=== PATIENT | female | born 1955 ===

== ENCOUNTER 2017-10-19 08:56 | Inpatient (IN) | payer OTHER ==
[2017-10-19 09:22] VITALS: BMI 36.7
[2017-10-19] MEDS ORDERED: Morphine 4 mg/ml ISec IVP STA (09:41)
--- NOTE | 2017-10-19 09:47 | ED PDOC ---
Arrival/HPI - General Chief Complaint: Abdominal Pain Time Seen by Provider: 10/19/17 09:00 Historian: Patient - History of Present Illness Narrative History of Present Illness (Text): 10/19/17 09:41 A 61 year old female, whose past medical history includes COPD, obesity, and borderline diabetes with recent hypoglycemic fingersticks, hypothyroidism, presents to the emergency department with 4 day duration epigastric upper band like pain that wraps around the whole thorax through the interscapular region, postprandially exacerbated with associated decreased shortness of breath, decrepitation of exercise tolerance, nausea and left upper extremity numbness and tingling. The patient denies fevers, chills, headache, dizziness, productive cough, abdominal pain, vomiting, diarrhea, urinary/bowel changes, or any other complaint. PMD: Dr. Angelo Portillo Time/Duration: Other (4 Days) Symptom Onset: Sudden Symptom Course: Unchanged Activities at Onset: Rest, Light Context: Home Past Medical History - Provider Review Nursing Documentation Reviewed: Yes - Tetanus Immunization Tetanus Immunization: Unknown - Cardiac Hx Pacemaker: No - Pulmonary Hx Chronic Obstructive Pulmonary Disease (COPD): Yes - Neurological Hx Neurological Disorder: No Hx Paralysis: No - HEENT Hx HEENT Disorder: Yes (glasses) - Renal Hx Renal Disorder: No - Endocrine/Metabolic Hx Endocrine Disorders: Yes Hx Diabetes Mellitus Type 2: Yes Hx Hypothyroidism: Yes - Hematological/Oncological Hx Blood Disorders: No Hx Blood Transfusions: No Hx Blood Transfusion Reaction: No - Integumentary Hx Dermatological Disorder: No - Musculoskeletal/Rheumatological Hx Musculoskeletal Disorders: No Hx Falls: No - Gastrointestinal Hx Gastrointestinal Disorders: Yes Hx Gastritis: Yes - Genitourinary/Gynecological Hx Genitourinary Disorders: No - Psychiatric Hx Psychophysiologic Disorder: No Hx Emotional Abuse: No Hx Physical Abuse: No Hx Substance Use: No - Surgical History Hx Cholecystectomy: Yes Other/Comment: C- section - Anesthesia Hx Anesthesia Reactions: No Hx Malignant Hyperthermia: No - Suicidal Assessment Feels Threatened In Home Enviroment: No Family/Social History - Physician Review Nursing Documentation Reviewed: Yes Family/Social History: No Known Family HX Smoking Status: Former Smoker Hx Alcohol Use: No Hx Substance Use: No Allergies/Home Meds Allergies/Adverse Reactions: Allergies No Known Allergies Allergy (Verified 10/19/17 09:12) Home Medications: Home Meds Medication Instructions Recorded Confirmed Levothyroxine Sodium [Unithroid] 25 mcg PO DAILY 12/22/15 10/19/17 Aspirin [Adult Low Dose Aspirin EC] 81 mg PO DAILY 10/19/17 10/19/17 buPROPion SR [Wellbutrin] 100 mg PO DAILY 10/19/17 10/19/17 Review of Systems - Physician Review All systems were reviewed & negative as marked: Yes - Review of Systems Constitutional: absent: Fevers, Night Sweats Respiratory: SOB, Cough Cardiovascular: Chest Pain, RANDHAWA Gastrointestinal: Nausea. absent: Abdominal Pain, Diarrhea, Vomiting Genitourinary Female: absent: Urine Output Changes Neurological: absent: Headache, Dizziness Physical Exam Vital Signs Reviewed: Yes Vital Signs Temp Pulse Resp BP Pulse Ox 10/19/17 12:34 65 18 135/55 L 99 10/19/17 09:09 98.0 F 75 18 157/94 H 96 Temperature: Afebrile Blood Pressure: Hypertensive Pulse: Regular Respiratory Rate: Normal Appearance: Positive for: Well-Appearing, Non-Toxic, Uncomfortable Pain Distress: None Mental Status: Positive for: Alert and Oriented X 3 - Systems Exam Head: Present: Atraumatic, Normocephalic Pupils: Present: PERRL Extroacular Muscles: Present: EOMI Conjunctiva: Present: Normal Mouth: Present: Moist Mucous Membranes Neck: Present: Normal Range of Motion Respiratory/Chest: Present: Decreased Breath Sounds (mild decreased I/E ratio) Cardiovascular: Present: Regular Rate and Rhythm, Normal S1, S2. No: Murmurs Abdomen: Present: Other (mild epigastric distractible discomfort. Obese abdomen. Soft.) Back: Present: Normal Inspection Upper Extremity: Present: Normal Inspection. No: Cyanosis, Edema Lower Extremity: Present: Edema (trace edema), Tenderness (Mildly tender to touch) Neurological: Present: GCS=15, CN II-XII Intact, Speech Normal Skin: Present: Warm, Dry, Normal Color. No: Rashes Psychiatric: Present: Alert, Oriented x 3, Normal Insight, Normal Concentration Medical Decision Making ED Course and Treatment: 10/19/17 09:52 Impression: A 61 year old female presents to the emergency department for cough, shortness of breath and chest pain. Plan: -- EKG -- Chest X-ray -- Labs -- Urinalysis -- Ecotrin, Pepcid, Morphine, and Protonix -- Reassess and disposition Prior Visits: Notes and results from previous visits were reviewed. Patient was last seen in the emergency department on 12/27/2015. The patient was seen in the emergency department with a complaint of productive cough with spututm. The patient was hospitalized. Progress Notes: CHEST X-RAY Dictator : Sylvain Marion MD Report Date : 10/19/2017 10:56:11 IMPRESSION: No active disease. 10/19/17 16:42 pt continues to complain bandlike upper abdomoinal pain raditing to the lue tingling /umbness and decrementaiton of ET. - Lab Interpretations Lab Results: 10/19/17 10:00 10/19/17 10:00 Lab Results 10/19/17 13:39: Troponin I < 0.01 10/19/17 10:00: Sodium 141, Potassium 4.1, Chloride 106, Carbon Dioxide 27, Anion Gap 12, BUN 12, Creatinine 0.8, Est GFR ( Amer) > 60, Est GFR (Non- Af Amer) > 60, Random Glucose 184 H, Calcium 9.2, Total Bilirubin 0.7, AST 44 H , ALT 60 H, Alkaline Phosphatase 103, Troponin I < 0.01, Total Protein 6.8, Albumin 3.8, Globulin 3.0, Albumin/Globulin Ratio 1.3, Lipase 75 10/19/17 10:00: Urine Color Yellow, Urine Appearance Clear, Urine pH 6.0, Ur Specific [place] 1.015, Urine Protein Negative, Urine Glucose (UA) 250 H, Urine Ketones Negative, Urine Blood Negative, Urine Nitrate Negative, Urine Bilirubin Negative, Urine Urobilinogen 0.2, Ur Leukocyte Esterase Negative 10/19/17 10:00: PT 11.2, INR 1.02, APTT 27.2 10/19/17 10:00: WBC 7.2, RBC 5.15, Hgb 14.7, Hct 43.4, MCV 84.3, MCH 28.5, MCHC 33.9, RDW 13.5, Plt Count 182, MPV 10.5, Gran % 67.1, Lymph % (Auto) 23.8, [place] % (Auto) 5.4, Eos % (Auto) 2.9, Baso % (Auto) 0.8, Gran # 4.85, Lymph # 1.7, [place] # 0.4, Eos # 0.2, Baso # 0.06 I have reviewed the lab results: Yes - RAD Interpretation Radiology Orders: 10/19/17 09:41 CHEST PORTABLE [RAD] Stat 10/19/17 13:08 ABDOMEN COMPLETE [US] Stat - EKG Interpretation Interpreted by ED Physician: Yes Type: 12 lead EKG - Medication Orders Current Medication Orders: Discontinued Medications Al Hydrox/Mg Hydrox/Simethicone (Maalox Plus 30 Ml) 30 ml PO STAT STA Stop: 10/19/17 11:13 Last Admin: 10/19/17 11:34 Dose: 30 ml Aspirin (Ecotrin) 162 mg PO STAT STA Stop: 10/19/17 09:44 Last Admin: 10/19/17 10:15 Dose: 162 mg Famotidine (Pepcid) 20 mg IVP STAT STA Stop: 10/19/17 09:42 Last Admin: 10/19/17 10:10 Dose: 20 mg IVP Administration Document 10/19/17 10:10 RD (Rec: 10/19/17 10:17 RD [id number]) Charges for Administration # of IVP Administrations 1 Morphine Sulfate (Morphine) 2 mg IVP STAT STA Stop: 10/19/17 09:42 Last Admin: 10/19/17 10:17 Dose: 2 mg MAR Pain Assessment Document 10/19/17 10:17 RD (Rec: 10/19/17 10:17 RD [id number]) Pain Reassessment Is this a pain reassessment? No Sleep Is patient sleeping during reassessment? No Presence of Pain Presence of Pain Yes IVP Administration Document 10/19/17 10:17 RD (Rec: 10/19/17 10:17 RD [id number]) Charges for Administration # of IVP Administrations 1 Pantoprazole Sodium (Protonix Inj) 40 mg IVP STAT STA Stop: 10/19/17 09:42 Last Admin: 10/19/17 10:13 Dose: 40 mg IVP Administration Document 10/19/17 10:13 RD (Rec: 10/19/17 10:18 RD [id number]) Charges for Administration # of IVP Administrations 1 - Scribe Statement The provider has reviewed the documentation as recorded by the Kashif Dennis Provider Scribe Attestation: All medical record entries made by the Scribe were at my direction and personally dictated by me. I have reviewed the chart and agree that the record accurately reflects my personal performance of the history, physical exam, medical decision making, and the department course for this patient. I have also personally directed, reviewed, and agree with the discharge instructions and disposition. Disposition/Present on Arrival - Present on Arrival Any Indicators Present on Arrival: No History of DVT/PE: No History of Uncontrolled Diabetes: No Urinary Catheter: No History of Decub. Ulcer: No History Surgical Site Infection Following: None - Disposition Have Diagnosis and Disposition been Completed?: Yes Diagnosis: Chest pain, Gastritis Disposition: HOSPITALIZED Disposition Time: 16:45 Patient Plan: Admission Condition: FAIR Discharge Instructions (ExitCare): Chest Pain (ED) Referrals: Chelly Portillo MD [Primary Care Provider] - Follow up with primary Forms: [facility] ([place])
[2017-10-19 10:14] LABS: BASO # 0.06 K/mm3 (0.0-2.0); BASO % 0.8 % (0.0-3.0); EOS # 0.2 (0.0-0.7); EOS % 2.9 % (1.5-5.0); GRAN # 4.85 (1.4-6.5); GRAN % 67.1 % (50.0-68.0); HEMATOCRIT 43.4 % (36.0-48.0); LYMPH # 1.7 (1.2-3.4); LYMPH % 23.8 % (22.0-35.0); MEAN CELL VOLUME 84.3 fl (80.0-105.0); MEAN CORPUSCULAR HEMOGLOBIN 28.5 pg (25.0-35.0); MEAN CORPUSCULAR HGB CONC 33.9 g/dl (31.0-37.0); MEAN PLATELET VOLUME 10.5 fl (7.0-11.0); MONO # 0.4 (0.1-0.6); MONO % 5.4 % (1.0-6.0); RED CELL DISTRIBUTION WIDTH 13.5 % (11.5-14.5); URINE BILIRUBIN NEGATIVE (NEGATIVE); URINE BLOOD NEGATIVE (NEGATIVE); URINE GLUCOSE (UA) 250 mg/dL (NEGATIVE); URINE KETONE NEGATIVE (NEGATIVE); URINE LEUKOCYTE ESTERASE NEGATIVE Leu/uL (NEGATIVE); URINE PROTEIN NEGATIVE mg/dL (<30 mg/dL); URINE UROBILINOGEN 0.2 E.U./dL (<1 E.U./dL); WHITE BLOOD COUNT 7.2 10^3/ul (4.5-11.0)
[2017-10-19 10:17] LABS: URINE APPEARANCE CLEAR (CLEAR); URINE COLOR YELLOW (YELLOW)
[2017-10-19 10:22] LABS: ALB/GLOB RATIO 1.3 (1.1-1.8); ALKALINE PHOSPHATASE 103 U/L (38-126); ALT/SGPT 60 U/L (7-56); AST/SGOT 44 U/L (14-36); BILIRUBIN,TOTAL 0.7 mg/dL (0.2-1.3); BLOOD UREA NITROGEN 12 mg/dL (7-21); CALCIUM 9.2 mg/dL (8.4-10.5); CARBON DIOXIDE 27 mmol/L (21-33); CHLORIDE 106 mmol/L (98-107); GFR AFRICAN-AMERICAN > 60; GLUCOSE,RANDOM 184 mg/dL (70-110); LIPASE 75 U/L (23-300); POTASSIUM 4.1 mmol/L (3.6-5.0); SODIUM 141 mmol/L (132-148); TOTAL PROTEIN 6.8 g/dL (5.8-8.3)
[2017-10-19 10:24] LABS: INR 1.02 (0.93-1.08); PARTIAL THROMBOPLASTIN TIME 27.2 Seconds (25.1-36.5)
[2017-10-19 10:34] LABS: TROPONIN I < 0.01 ng/mL
--- NOTE | 2017-10-19 10:57 | RAD ---
HISTORY: epigastric/cp COMPARISON: 01/02/2016 FINDINGS: LUNGS: No active pulmonary disease. PLEURA: No significant pleural effusion identified, no pneumothorax apparent. CARDIOVASCULAR: Normal. OSSEOUS STRUCTURES: No significant abnormalities. VISUALIZED UPPER ABDOMEN: Normal. OTHER FINDINGS: None. IMPRESSION: No active disease.
[2017-10-19] MEDS ORDERED: Alum-Mag Hydrox-Simethicone Susp (30 mL) PO STA (11:12)
--- NOTE | 2017-10-19 14:20 | US ---
HISTORY: ruq sono COMPARISON: None. TECHNIQUE: Sonographic evaluation of the abdomen. FINDINGS: LIVER: Measures 15.1 cm. Diffusely increased echogenicity of the liver parenchyma. Consistent with fatty infiltrate. No mass. No biliary dilatation. Smooth contour. Normal hepatopetal portal venous flow demonstrated. GALLBLADDER: Status post cholecystectomy COMMON BILE DUCT: Measures 3 mm. No stones. No dilatation. PANCREAS: Unremarkable as visualized. No mass. No ductal dilatation. RIGHT KIDNEY: Measures 10.7cm. Normal echogenicity. No calculus, mass, or hydronephrosis. LEFT KIDNEY: Measures 9.9cm. Normal echogenicity. No calculus, mass, or hydronephrosis. SPLEEN: Normal in size and contour. No mass. AORTA: Inadequately demonstrated. Technically limited examination due to body habitus. IVC: Inadequately demonstrated. Technically limited due to body habitus. OTHER FINDINGS: None. IMPRESSION: Fatty infiltration of the liver. Otherwise unremarkable.
[2017-10-19] MEDS ORDERED: Dextrose 5%/0.45% NS 1,000 ML IV SCH (19:15)
[2017-10-19] MEDS ORDERED: Pneumococcal 23-Valent Vaccine IM ONE (21:31)
[2017-10-19] MEDS ORDERED: Influenza Vaccine 60 mcg/0.5 mL SYR (4YR UP) IM ONE (21:31)
--- NOTE | 2017-10-19 23:11 | CARD ---
APPROVED REPORT EKG Measurement Heart [id number] MD [id number] <Conclusion> Normal sinus rhythm Low voltage QRS Nonspecific T wave abnormality Abnormal ECG
--- NOTE | 2017-10-20 02:44 | CON ---
DATE: 10/19/2017 LOCATION: The patient is in room 277, bed 1. REASON FOR CONSULTATION: Chest pain. HISTORY OF PRESENT ILLNESS: This is a 61-year-old female,who is known to have COPD and she is on CPAP at home, nxk-uegzyxc-odnxrrabz diabetes mellitus, obstructive sleep apnea, morbid obesity, history of TIA, admitted with a history that when she walks, she gets shortness of breath and also she had yesterday episode of pain, which started in the epigastrium and went lower part of the sternal region and also went in the back. She states she has this pain since many years because she has a history of gastritis. Denies any exertional pain. PAST MEDICAL HISTORY: Positive for COPD, the patient is on CPAP; oun-qexbeuk-qchhcqnhz diabetes mellitus, and history of obstructive sleep apnea. PAST SURGICAL HISTORY: The patient has , cholecystectomy, tonsillectomy, and laser eye surgery. FAMILY HISTORY: Father had COPD and sister has rheumatoid arthritis. PERSONAL HISTORY: The patient used to smoke mdx-rnyv-d-day until 22 years ago and she stopped 22 years. Denies drinking. ALLERGIES: DENIES ANY ALLERGIES. PHYSICAL EXAMINATION: VITAL SIGNS: Blood pressure 133/74, respirations 17, pulse 65, and temperature 98. HEENT: Head is normocephalic. Eyes: Pupils normal. Conjunctivae normal. Nose and throat normal. NECK: JVP low. Carotids equal. THORAX: AP diameter normal. LUNGS: Slight expiratory wheezing. CARDIOVASCULAR: S1 and S2. ABDOMEN: Soft. No tenderness. No organomegaly. EXTREMITIES: No clubbing. No cyanosis. LABORATORY DATA: WBC 7.2, hemoglobin 14.7, hematocrit 43.4, and platelet 182. Sodium 141, potassium 4.1, BUN 12, and creatinine 0.8. Troponin x2 negative. AST 44 and ALT 60. Chest x-ray, no active pulmonary disease in the lungs. EKG showed regular sinus rhythm, poor progression of R in V1-V3, and nonspecific ST-T changes. The patient had echocardiogram on 12/30/2015, which showed normal LV size, borderline mild concentric left ventricular hypertrophy, LV ejection fraction 60% to 65%, yluy-ex-xsthigmg mitral regurgitation, mild tricuspid regurgitation, and RVSP 36 mmHg. DIAGNOSES: Chest pain, atypical most likely gastrointestinal region; chronic obstructive pulmonary disease; sleep apnea; orl-mgctfoa-wgqrukuxl diabetes mellitus; morbid obesity; and history of gastritis. PLAN: The patient is on medication aspirin 81 mg daily, DuoNeb hand nebulizer therapy, Protonix 40 daily, and Toprol-XL 25 daily. We will continue this therapy. We will check lipid profile and TSH and we will arrange stress test. We will follow with you. Reyna Cali MD
[2017-10-20] MEDS: Pantoprazole 40 mg EC Tab PO SCH (06:38)
[2017-10-20 07:31] LABS: ALB/GLOB RATIO 1.3 (1.1-1.8); ALKALINE PHOSPHATASE 90 U/L (38-126); ALT/SGPT 57 U/L (7-56); AST/SGOT 44 U/L (14-36); BILIRUBIN,TOTAL 0.8 mg/dL (0.2-1.3); BLOOD UREA NITROGEN 10 mg/dL (7-21); CALCIUM 8.6 mg/dL (8.4-10.5); CARBON DIOXIDE 27 mmol/L (21-33); CHLORIDE 107 mmol/L (98-107); CHOLESTEROL 176 mg/dL (130-200); GFR AFRICAN-AMERICAN > 60; GLUCOSE,RANDOM 145 mg/dL (70-110); POTASSIUM 4.2 mmol/L (3.6-5.0); SODIUM 141 mmol/L (132-148); TOTAL PROTEIN 6.1 g/dL (5.8-8.3)
[2017-10-20 07:45] LABS: FREE T4 1.15 ng/dL (0.78-2.19)
[2017-10-20 07:59] LABS: THYROID STIMULATING HORMONE 3.29 mIU/mL (0.46-4.68)
[2017-10-20] MEDS: Metoprolol Succinate 25 mg XL Tab PO SCH (09:04)
[2017-10-20] MEDS: Levothyroxine 25 MCG TAB PO SCH (09:04)
[2017-10-20 09:37] LABS: TROPONIN I < 0.01 ng/mL
--- NOTE | 2017-10-20 13:18 | PN ---
DATE: 10/20/2017 REASON FOR CONSULTATION AND FOLLOWUP: Chest pain, epigastric pain radiating to the chest. SUBJECTIVE: No chest pain now, wants to go home. OBJECTIVE: GENERAL: Not in apparent distress, sitting at the bedside. VITAL SIGNS: Temperature afebrile, blood pressure 101/70. HEENT: PERRLA. Extraocular muscles intact. NECK: Supple. No carotid bruits or thyromegaly. CHEST: Clear to auscultation. HEART: S1 and S2 regular. ABDOMEN: Soft. EXTREMITIES: Clubbing and cyanosis negative. LABORATORY DATA: Blood workup as follows; WBC 7.8, hemoglobin 14, hematocrit 43.4, platelet count 182. Chemistry shows sodium 141, potassium 4.2, chloride 107, carbon dioxide 27, anion gap of 11, BUN 10, creatinine 0.8, AST 44, ALT 57, triglyceride 191, cholesterol 176, LDL 114, HDL 39, TSH 3.29. IMPRESSION: Chest pain, so far no evidence of acute myocardial infarction; troponin remains negative; history of chronic obstructive pulmonary disease; history of obstructive sleep apnea; diabetes; hypertension; obesity, morbid and history of transient ischemic attack. PLAN: Though chest pain is atypical, but given the multiple risk factor for coronary artery disease, suggest echo and a stress test tomorrow. I discussed with the patient, the patient agrees to stay. We will schedule for stress test and echo tomorrow. The patient's last echo on 12/30/2015, does show ejection fraction 65%, mild concentric LVH, enoz-ag-byatvtvb mitral regurgitation, mild tricuspid regurgitation, systolic pressure 36. We will repeat echo. We will keep n.p.o. to admit after the stress test. We will schedule stress test and echo tomorrow. We will add troponin in the morning specimen. Thank you Dr. Lisa for providing the opportunity in taking care of the patient, Luz Marina Villarreal. Reyna Barber MD cc:
[2017-10-20 17:37] VITALS: RESP 20
--- NOTE | 2017-10-20 18:31 | HP ---
CHIEF COMPLAINT AND HISTORY OF PRESENT ILLNESS: This is a 61-year-old female who is coming into the hospital complaining of chest pain for one day. She was having palpitations for a week. She is also having shortness of breath for the past week. The patient has a past medical history of diabetes type 2. She has COPD and is using CPAP at home. She says ambulation causes her to have palpitations. She is also having epigastric pain. She states that she has no nausea, no vomiting, and no weakness in the arms or the legs. She does not have a known history of cardiac history. She has no dysuria. No frequency. REVIEW OF SYSTEMS: All other review of systems are within normal limits except as mentioned. ALLERGIES: NO KNOWN DRUG ALLERGIES. PAST MEDICAL HISTORY: 1. COPD on CPAP. 2. Diabetes type 2. PAST SURGICAL HISTORY: Cholecystectomy, tonsillectomy, eye surgery, and . FAMILY HISTORY: She has a father of COPD. No cardiac disease in the family. SOCIAL HISTORY: She smoke upe-lkca-p-day for 22 years. She is currently not smoking. She does not drink. HOME MEDICATIONS: Synthroid, aspirin, and Wellbutrin. PHYSICAL EXAMINATION: VITAL SIGNS: Temperature is 97.6, pulse of 61, blood pressure 114/62, respirations 20, and O2 saturation 98%. Height is 5 feet 2 inches and weight 237 pounds. GENERAL: The patient lying in bed, uncomfortable, and in no acute distress. HEENT: Atraumatic and normocephalic. Anicteric sclerae. Moist mucosa. [place] conjunctivae. No oral lesions. NECK: No JVD, anterior and posterior adenopathy, thyromegaly, or bruits. CARDIOVASCULAR: S1 and S2 regular. No murmur, rubs, or gallop. LUNGS: Clear to auscultation bilaterally. No wheezes, rales, or rhonchi. ABDOMEN: Bowel sounds are positive. Soft, nontender and nondistended. No hepatosplenomegaly. No rebound and no guarding. EXTREMITIES: No cyanosis, clubbing, or edema. NEUROLOGIC: No facial asymmetry. Tongue is midline. No uvula deviation. Power is 5/5 upper extremity and lower extremity. Sensation intact in upper extremity and lower extremity. PSYCHIATRIC: She is awake, alert and oriented x3. No anxiety or depression. She has normal affect. GENITOURINARY: No CVA tenderness. VASCULAR: 2+ pulses in the carotid pulses and pedal pulses. SKIN: No erythema or nodules. SPINE: Shows normal curvature. LABORATORY DATA: White count is 7.2, hemoglobin is 14.7, and INR is 1.02. Chemistry shows troponin is negative x2. Creatinine is 0.8. Sodium is 141. TSH is 3.2 with urine shows glucose of 250, ketones are negative, and blood is negative. Chest x-ray done shows no active disease. EKG shows sinus rhythm, QTc is 440. Abdominal ultrasound done shows fatty infiltration of the liver. ASSESSMENT: 1. Chest pain. 2. Diabetes type 2. 3. Chronic obstructive pulmonary disease. 4. Hypothyroidism. PLAN: The patient is going to be admitted to the hospital. She is going to be on Protonix for her epigastric discomfort and may be related to peptic ulcers or GERD. The patient is on aspirin. She is going to be seen by Cardiology. I did speak to Dr. Barber this morning. The patient is on IV fluids. I will discontinue the patient's IV fluids at this point. She is going to be on metoprolol. She is on Zofran as needed. She is not on any diabetes medications. She will continued her Synthroid. I will also continue her Wellbutrin. We will probably need a stress test done. She is scheduled tomorrow by Dr. Barber. We will continue telemetry monitoring. We will also get GI to evaluate the patient. We will advance her diet to a regular diet. Jamil Stuart MD
--- NOTE | 2017-10-21 02:04 | CON ---
DATE: 10/20/2017 HISTORY OF PRESENT ILLNESS: This patient was seen and evaluated earlier today. This 61-year-old patient with past medical history of diabetes mellitus, COPD, hypothyroidism, admitted with worsening of the abdominal pain for the last 2 weeks. She started about 2 weeks ago. She is always have a sensation of bloating of the abdomen. For the past 2 weeks, she has been experiencing more discomfort at the epigastric area extending to the upper chest. She complaints of abdominal bloating and more discomfort after eating. PAST MEDICAL HISTORY: The patient has history of reflux disease and had an endoscopy and also colonoscopy done more than 4 years ago. The patient has been on pantoprazole. Other past medical history significant as above; history of TIA many years ago, status post cholecystectomy, hypothyroidism and patient also has a history of anxiety and depression. ALLERGIES: NO KNOWN DRUG ALLERGIES. FAMILY HISTORY: Positive for COPD. SOCIAL HISTORY: He used to vapour one-pack of cigarette per day for 22 years. She is ex-smoker. Denies alcohol use. PHYSICAL EXAMINATION GENERAL: The patient is lying on the bed, not in acute distress. VITAL SIGNS: Temperature is 97.6, blood pressure 151/81, pulse 69, respirations 20. HEENT: Atraumatic and anicteric. NECK: Supple. HEART: S1 and S2 heard. LUNGS: Bilateral air entry present. ABDOMEN: Soft. There is a mild tenderness present in the epigastric area. EXTREMITIES: No edema, no cyanosis. NEUROLOGICAL: Alert and oriented. Moves all extremities. LABORATORY DATA: Hemoglobin 14.7, hematocrit 43.4, WBC 7.2, platelet 182. Chemistry is essentially unremarkable except the AST is 44, ALT is 57, glucose 145. Her ultrasound scan of the abdomen done showed status post cholecystectomy, CBD normal 3 mm. IMPRESSION: This 61-year-old patient admitted with diabetes mellitus, chronic obstructive pulmonary disease, hypothyroidism, admitted with atypical chest pain progressively for the 2 weeks. The patient has been evaluated by the Cardiology, she is scheduled for stress test tomorrow. The other differential diagnoses should include gastroesophageal reflux disease and gastroparesis. The patient has been on pantoprazole for a longer time. RECOMMENDATIONS: 1. Continue the PPI. 2. Change the diet to low residue diet and chew well and small frequent quantities. 3. The patient would benefit from the elective upper GI endoscopic evaluation as an outpatient. We will consult this after reviewing the completion of cardiologic evaluation. Thank you very much for allowing us to participate in the care of the patient. Linnette Parra MD
[2017-10-21 04:22] VITALS: O2SAT 99
[2017-10-21] MEDS: Pantoprazole 40 mg EC Tab PO SCH (06:39)
[2017-10-21] MEDS: Levothyroxine 25 MCG TAB PO SCH (12:09)
[2017-10-21] MEDS: Metoprolol Succinate 25 mg XL Tab PO SCH (12:10)
--- NOTE | 2017-10-21 15:31 | CARD ---
APPROVED REPORT Protocol: GINNY Test Type: Sestamibi Stress Test Attending Physician: Dr. Reyna Cali Referring Physician: Dr. Sola Lisa Test Indications: Chest Pain Height:5 ft 2 in Weight:237lbs Medications: tylenol, aspirin, wellbutrin, synthroid, metoprolol, zofran, protonix Medical History: 61 year old female with a h/o dibetes, COPD, high cholesterol, hypothyroidism, cholecystectomy, gastritis, depression, sleep apnea and Target HR: 161 bpm Resting ECG: Fatigue. Resting Heart Rate: 84 bpm Resting Blood Pressure: 108/70mmHg Submaximum (85%): 137 bpm POST EXERCISE Reason for Termination: Fatigue Target HR: No Max HR: 141 bpm 87% of Maximum Predicted HR: 161 bpm Exercise duration: 07:43 min:sec, 3 Stage Exercise capacity: 9.6METs Max Blood Pressure: 130/64mmHg Blood Pressure response to exercise: normal resting BP - appropriate response Heart Rate response to exercise: appropriate Chest Pain: No, none Angina index: 0 Arrhythmia: No, none ST Change: No, none Deviation: 0 mm TEST SUMMARY [id number]/.[id number]. [id number]. EXERCISESTAGE [id number]. EXERCISESTAGE [id number]. EXERCISESTAGE 301:[id number]. [id number]. INTERPRETATION Stress EKG Conclusion: MYOVIEW NUCLEAR STRESS TEST STOPPED AFTER 7 MINUTES AND 43 SECONDS OF GINNY PROTOCOL DUE TO FATIGUE. PATIENT ACHIEVED 87% OF PREDICTED HEART RATE NO CHEST PAIN. NO ST-T CHANGES. NUCLEAR SCAN REPORT PENDING. Signed by Reyna Cali Electronically Approved: 10/21/2017 13:00:47 EXAM: Myocardial Perfusion REST/STRESS Stress Test Type: Exercise Treadmill Imaging Protocol Rest Spect myocardial perfusion imaging was performed in supine position 50 minutes following the injection of 10.8 mCi of Tc-99 Myoview. At peak stress, the patient was injected intravenously with 30.7mCi of Tc-99 tetrofosmin after an exercise time of 7 minutes and 43 seconds. Gated Stress Spect was performed 65 minutes after intravenous Tc-99 Myoview injection. The images were gated to evaluate regional wall motion and calculate ventricular ejection fraction.Images were reconstructed using backfilter projection method in short horizontal and verticle long axis. Spect slices were generated. LV Perfusion The quality of the study is good. The left ventricle is normal in size. The right ventricle is unremarkable. The lung uptake is within normal limits. The distribution of tracer reveals normal uptake pattern throughout the LV myocardium on the stress study. The rest myocardial perfusion study shows no significant change. Wall Motion Wall motion study shows good contractility of the left ventricle. LVEF = 76%. Conclusion 1. Normal SPECT myocardial perfusion study. 2. Normal gated wall motion of the left ventricle.
[2017-10-21 18:03] VITALS: BP 143/84; PULSE 62
[2017-10-21 18:04] VITALS: TEMP 97.8
--- NOTE | 2017-10-21 19:36 | CARD ---
APPROVED REPORT EXAM: Two-dimensional and M-mode echocardiogram with Doppler and color Doppler. INDICATION LV Function:SystolicDiastolic Chest Pain 2D DIMENSIONS Left Atrium (2D)3.6 (1.6-4.0cm)IVSd1.3 (0.7-1.1cm) LVDd4.6 (3.9-5.9cm)PWd1.2 (0.7-1.1cm) LVDs3.2 (2.5-4.0cm)FS (%) 30.1 % LVEF (%)57.3 (>50%) M-Mode DIMENSIONS Aortic Root2.20 (2.2-3.7cm)Aortic Cusp Exc.1.60 (1.5-2.0cm) Aortic Valve AoV Peak Swvmgwuk475.0cm/Tash Peak GR.9mmHg Mitral Valve MV E Giwbucps06.3cm/sMV A Fzlfqfrw86.0cm/sE/A ratio1.0 TDI E/Lateral E'0.0E/Medial E'0.0 Tricuspid Valve TR Peak Hgtagksz441gu/sRAP [id number] Peak Gr.16mmHg [id number] LEFT VENTRICLE The left ventricle is normal size. There is mild concentric left ventricular hypertrophy. The left ventricular function is normal.EF-55-60% There is normal LV segmental wall motion. Transmitral Doppler flow pattern is Grade III-reversible restrictive diastolic dysfunction. No left ventricle thrombus noted on this study. There is no ventricular septal defect visualized. There is no left ventricular aneurysm. There is no mass noted in the left ventricle. RIGHT VENTRICLE The right ventricle is normal size. There is normal right ventricular wall thickness. The right ventricular systolic function is normal. ATRIA The left atrium size is normal. The right atrium size is normal. The interatrial septum is intact with no evidence for an atrial septal defect. AORTIC VALVE The aortic valve is thickened but opens well. There is trace aortic regurgitation. There is no aortic valvular stenosis. There is no aortic valvular vegetation. MITRAL VALVE The mitral valve is thickened but opens well. Mitral annular calcification is moderate. Mitral regurgitation is trace. There is no mitral valve stenosis. There is no evidence of mitral valve prolapse. TRICUSPID VALVE The tricuspid valve leaflets are thickened , but open well. There is trace to mild tricuspid regurgitation.RVSP-26 mmof hg. There is no tricuspid valve stenosis. There is no tricuspid valve prolapse or vegetation. PULMONIC VALVE The pulmonary valve is normal in structure. There is trace pulmonic valvular regurgitation. There is no pulmonic valvular stenosis. GREAT VESSELS The aortic root is normal in size. The ascending aorta is normal in size. The pulmonary artery is normal. The IVC is normal in size and collapses >50% with inspiration. PERICARDIAL EFFUSION There is no pleural effusion. There is no pericardial effusion. <Conclusion> The left ventricle is normal size. There is mild concentric left ventricular hypertrophy. The left ventricular function is normal.EF-55-60% There is trace aortic regurgitation. There is trace to mild tricuspid regurgitation.RVSP-26 mmof hg. Mitral regurgitation is trace. There is no pericardial effusion.
--- NOTE | 2017-10-21 20:54 | PN ---
DATE: 10/21/2017 REASON FOR CONSULTATION: Followup chest pain, epigastric pain radiating into the chest. SUBJECTIVE: The patient did not have any chest pain today. Awaiting for a stress test today. PHYSICAL EXAMINATION: VITAL SIGNS: Temperature afebrile, heart rate 81, blood pressure 136/81. HEENT: PERRLA. Extraocular muscles intact. NECK: Supple. No carotid bruit or thyromegaly. CHEST: Clear to auscultation. HEART: S1 and S2 regular. ABDOMEN: Soft. EXTREMITIES: Clubbing and cyanosis negative. LABORATORY DATA: Blood workup as follows; WBC 7.2, hemoglobin 14.7, hematocrit 43.4 and platelet count 182. Chemistry shows sodium 141, potassium 4.4, chloride 107, carbon dioxide 27, anion gap of 11, BUN 10, and creatinine 0.8, troponin 0.01 negative. IMPRESSION: Chest pain, atypical, obesity, hypertension, hyperlipidemia. Multiple risk factors for coronary artery disease. Recommend stress test and echo. Further recommendation after the stress test.. If the stress test is negative, we will discontinue telemetry. Thank you for providing us the opportunity in taking of the patient, Luz Marina Villarreal. We will follow with you. Reyna Barber MD
--- NOTE | 2017-10-22 03:46 | DS ---
HISTORY OF PRESENT ILLNESS: The patient is a 61-year-old who came to emergency room because of epigastric discomfort and chest discomfort. The patient was given PPI. She had echocardiogram done that is pending and has stress test done that is unremarkable. PHYSICAL EXAMINATION: GENERAL: Today; she is awake, alert, oriented, and communicative. VITAL SIGNS: She is afebrile, pulse 81, respirations 20, and blood pressure 136/81. LUNGS: Bilateral fair airflow. No rhonchi or crackles. HEART: S1 and S2 audible. ABDOMEN: Soft and nontender. No rebound. No guarding. NEUROLOGIC: She is awake, alert, oriented, overweight, communicative, and ambulatory. LABORATORY DATA: Sodium 141, potassium 4.2, chloride 107, CO2 of 27, BUN 10, creatinine 0.8, and blood sugar of 145. AST 44, ALT 57, and triglyceride 191. Urinalysis shows positive glucose. Her stress test done this morning is normal Myoview study, normal gated wall motion. She has abdominal sonogram done that is also unremarkable. ASSESSMENT: 1. Noncardiac chest pain. 2. Gastritis. 3. Hypothyroidism. 4. Hypertension. 5. Fatty liver. PLAN: The patient will be discharged to home. She will resume her medications that include Wellbutrin 100 mg daily, levothyroxine 25 mcg daily, aspirin 81 daily, and she is given prescription for Protonix 40 daily. She will follow up with her PMD. Sola Lisa MD
== END 2017-10-21 18:35 | disposition home or self-care (01) | DRG 313 ==
LOC: ED 08:56 → ERH 17:10 → 2RSO 19:06
PROVIDERS: ADMIT Internal Medicine; ATTEND Internal Medicine
DX: R07.89 Other chest pain (principal); E66.01 Morbid (severe) obesity due to excess calories; K76.0 Fatty (change of) liver, not elsewhere classified; I10 Essential (primary) hypertension; E03.9 Hypothyroidism, unspecified; K29.70 Gastritis, unspecified, without bleeding; E11.9 Type 2 diabetes mellitus without complications; J44.9 Chronic obstructive pulmonary disease, unspecified; K21.9 Gastro-esophageal reflux disease without esophagitis; G47.33 Obstructive sleep apnea (adult) (pediatric); E78.5 Hyperlipidemia, unspecified; Z68.36 Body mass index [BMI] 36.0-36.9, adult; Z86.73 Personal history of transient ischemic attack (TIA), and cerebral infarction without residual deficits; Z79.84 Long term (current) use of oral hypoglycemic drugs; Z90.49 Acquired absence of other specified parts of digestive tract; Z87.891 Personal history of nicotine dependence

== ENCOUNTER 2017-12-14 13:46 | Emergency (ER) | payer OTHER ==
[2017-12-14 13:46] VITALS: BMI 36.6
[2017-12-14] MEDS ORDERED: Albuterol-Ipratrop 3 mg / 0.5 (3 ml) UD IH STA (14:05)
--- NOTE | 2017-12-14 15:31 | RAD ---
HISTORY: sob COMPARISON: 10/19/2017 FINDINGS: LUNGS: No active pulmonary disease. PLEURA: No significant pleural effusion identified, no pneumothorax apparent. CARDIOVASCULAR: Normal. OSSEOUS STRUCTURES: No significant abnormalities. VISUALIZED UPPER ABDOMEN: Normal. OTHER FINDINGS: None. IMPRESSION: No active disease.
--- NOTE | 2017-12-14 15:37 | ED PDOC ---
Arrival/HPI - General Chief Complaint: Cough, Cold, Congestion Time Seen by Provider: 12/14/17 13:55 Historian: Patient - History of Present Illness Narrative History of Present Illness (Text): 12/14/17 14:00 A 62 year old female, whose past medical history includes COPD, obesity, and borderline diabetes with recent hypoglycemic fingersticks, and hypothyroidism, presents to the emergency department complaining of shortness of breath for 3 days. Patient reports also having a fever of 99.3, and some nausea and headache. Patient denies any vomiting, chills, or any other complaints. Patient notes also having no sick contacts. PMD: Dr. Chelly Portillo Past Medical History - Provider Review Nursing Documentation Reviewed: Yes - Infectious Disease Hx of Infectious Diseases: None - Tetanus Immunization Tetanus Immunization: Unknown - Cardiac Hx Hypertension: Yes - Pulmonary Hx Chronic Obstructive Pulmonary Disease (COPD): Yes Hx Sleep Apnea: Yes (cpap at home) - Neurological Hx Neurological Disorder: Yes (ble numbness at times) - HEENT Hx HEENT Disorder: Yes (glasses) Other/Comment: lasik eye sx - Renal Hx Renal Disorder: No - Endocrine/Metabolic Hx Endocrine Disorders: Yes Hx Diabetes Mellitus Type 2: Yes (borderline) Hx Hypothyroidism: Yes - Hematological/Oncological Hx Blood Disorders: No - Integumentary Hx Dermatological Disorder: Yes Other/Comment: red raised itchy rash to both arms x 2 days - Musculoskeletal/Rheumatological Hx Musculoskeletal Disorders: Yes - Gastrointestinal Hx Gastrointestinal Disorders: Yes (obese, gastritis, rectal bleed) Other/Comment: colonoscopy 01/2014 polyp and hemorrhoids - Genitourinary/Gynecological Hx Genitourinary Disorders: No - Psychiatric Hx Depression: Yes Hx Substance Use: No - Surgical History Hx Cholecystectomy: Yes (x2) Other/Comment: C- section - Anesthesia Hx Anesthesia Reactions: No Hx Malignant Hyperthermia: No - Suicidal Assessment Feels Threatened In Home Enviroment: No Family/Social History - Physician Review Nursing Documentation Reviewed: Yes Family/Social History: No Known Family HX Smoking Status: Former Smoker Hx Alcohol Use: No Hx Substance Use: No Allergies/Home Meds Allergies/Adverse Reactions: Allergies No Known Allergies Allergy (Verified 12/14/17 13:55) Review of Systems - Review of Systems Constitutional: Fevers. absent: Night Sweats Eyes: Normal ENT: Normal Respiratory: SOB Cardiovascular: Normal Gastrointestinal: Nausea (slightly). absent: Vomiting Genitourinary Female: Normal Musculoskeletal: Normal Skin: Normal Neurological: Headache (slightly) Endocrine: Normal Hemo/Lymphatic: Normal Psychiatric: Normal Physical Exam Vital Signs Reviewed: Yes Vital Signs Temp Pulse Resp BP Pulse Ox 12/14/17 16:40 18 98 12/14/17 16:00 98.0 F 80 18 129/95 H 98 Temperature: Afebrile Blood Pressure: Normal Pulse: Regular Respiratory Rate: Normal Appearance: Positive for: Well-Appearing Pain Distress: None Mental Status: Positive for: Alert and Oriented X 3 - Systems Exam Head: Present: Atraumatic, Normocephalic Pupils: Present: PERRL Extroacular Muscles: Present: EOMI Conjunctiva: Present: Normal Mouth: Present: Moist Mucous Membranes Neck: Present: Normal Range of Motion Respiratory/Chest: Present: Clear to Auscultation, Good Air Exchange. No: Respiratory Distress, Accessory Muscle Use Cardiovascular: Present: Regular Rate and Rhythm, Normal S1, S2. No: Murmurs Abdomen: Present: Normal Bowel Sounds. No: Tenderness, Distention, Peritoneal Signs Back: Present: Normal Inspection Upper Extremity: Present: Normal Inspection. No: Cyanosis, Edema Lower Extremity: Present: Normal Inspection. No: Edema Neurological: Present: GCS=15, CN II-XII Intact, Speech Normal Skin: Present: Warm, Dry, Normal Color. No: Rashes Psychiatric: Present: Alert, Oriented x 3, Normal Insight, Normal Concentration Medical Decision Making ED Course and Treatment: 12/14/17 14:05 Impression: 62 year old female with shortness of breath. Plan: -- Chest X-ray -- Duoneb -- Reassess and disposition Prior Visits: Notes and results from previous visits were reviewed. Patient was last seen in the emergency department on 10/19/2017 for epigastric upper band like pain. Patient was admitted. Progress Notes: 12/14/2017 15:29 Chest X-ray IMPRESSION: No active disease. Dictator: Adam Stephenson MD 12/14/17 15:52 Patient feeling better, lungs are clear. - RAD Interpretation Radiology Orders: 12/14/17 14:05 CHEST PORTABLE [RAD] Stat - Medication Orders Current Medication Orders: Discontinued Medications Albuterol Sulfate (Albuterol 0.083% Inhal Nhi (2.5 Mg/3 Ml) Ud) 2.5 mg INH STAT STA Stop: 12/14/17 15:54 Last Admin: 12/14/17 16:02 Dose: 2.5 mg Albuterol/Ipratropium (Duoneb 3 Mg/0.5 Mg (3 Ml) Ud) 3 ml IH STAT STA Stop: 12/14/17 14:06 Last Admin: 12/14/17 14:13 Dose: 3 ml Prednisone (Prednisone Tab) 40 mg PO STAT STA Stop: 12/14/17 15:56 Last Admin: 12/14/17 16:02 Dose: 40 mg - Scribe Statement The provider has reviewed the documentation as recorded by the Kashif Gallardo Provider Scribe Attestation: All medical record entries made by the Fantasmaibhubert were at my direction and personally dictated by me. I have reviewed the chart and agree that the record accurately reflects my personal performance of the history, physical exam, medical decision making, and the department course for this patient. I have also personally directed, reviewed, and agree with the discharge instructions and disposition. Disposition/Present on Arrival - Present on Arrival Any Indicators Present on Arrival: No History of DVT/PE: No History of Uncontrolled Diabetes: Yes Urinary Catheter: No History of Decub. Ulcer: No History Surgical Site Infection Following: None - Disposition Have Diagnosis and Disposition been Completed?: Yes Diagnosis: Bronchospasm with bronchitis, acute Disposition: HOME/ ROUTINE Disposition Time: 20:00 Patient Plan: Discharge Condition: STABLE Prescriptions: Albuterol HFA [Ventolin HFA 90 mcg/actuation (8 g)] 2 puff IH [id number] PRN #1 puff PRN Reason: Cough Albuterol 0.083% [Albuterol Sulfate 3 Ml] 3 ml IH TID PRN #30 neb PRN Reason: Wheezing predniSONE [Prednisone] 20 mg PO BID #10 tab Referrals: Chelly Portillo MD [Primary Care Provider] - Follow up with primary Forms: HALGI (Khmer)
[2017-12-14] MEDS ORDERED: Albuterol 0.083% Inhal Sol (2.5 mg/3 mL) UD INH STA (15:53)
[2017-12-14 16:48] VITALS: BP 129/95; PULSE 80; RESP 18; TEMP 98; O2SAT 98
== END 2017-12-14 16:49 | disposition home or self-care (01) ==
LOC: ED 13:46
DX: J20.9 Acute bronchitis, unspecified (principal); Z87.891 Personal history of nicotine dependence